=== PATIENT | male | born 1975 | race Caucasian/White ===

== ENCOUNTER 2019-05-17 08:06 | Emergency (ER) | payer SELFPAY ==
[~2019-05-17] VITALS: Ht 188 cm; Wt 72.6 kg
--- NOTE | 2019-05-17 08:43 | ED General ---
General Chief Complaint: General Problems/Pain Stated Complaint: N/V;ANXIETY;L ARM "BURNING" Nursing Triage Note: PT AMB TO RM 10 WOTH COMPLAINT OF ANXIETY, TROUBLE SLEEPIING, WEIGHT LOSS, VOMITING, AND L SHOUDLER BURNING. STATES HAS LOST 65 POUNDS SINCE ANKIT. Nursing Sepsis Screen: No Definite Risk Source of Information: Patient Exam Limitations: No Limitations History of Present Illness Date Seen by Provider: May 17, 2019 Time Seen by Provider: 08:29 Initial Comments The patient presents to the ER by private conveyance with chief complaint that he has had anxiety for the last several weeks to months. Concerns that he might be sick. He has concerns about a heart attack or stroke. He says for the past couple weeks he has had dull achy sensation in his shoulder left side that comes and goes for an hour to time. No chest pain shortness of breath cough fever chills. He has experienced significant weight loss of 65 pounds in the last 6 months. He does not know why. He is not having constipation diarrhea dysuria or discharge. Appetite is decreased as well as insomnia. He has not seen a doctor for this. He was trying to get in with Dr. Ramos's office but is on a wait list to be seen. He lives in [place] but since his girlfriend is here and [place] he would rather be seen here. He's not having any specific pain today. 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 He says the achiness in his shoulder is worse after working overhead with his arms extended. He is not experiencing any pain at the moment. He has no known medical or surgical history. His mom and dad are both positive for high blood pressure but no other significant medical history. No history of stroke, early onset cardiac disease, colon cancer, polyps etc. He's never had a colonoscopy. Past couple days he has had some nausea with dry heaving, retching; even again this morning. Allergies and Home Medications Allergies Coded Allergies: No Known Drug Allergies (Unverified , 05/17/19) Patient Home Medication List Home Medication List Reviewed: Yes Review of Systems Review of Systems Constitutional: No chills; dizziness (lightheadedness); No fever, No malaise EENTM: No ear discharge, No ear pain Respiratory: No cough, No phlegm Cardiovascular: No chest pain, No palpitations Gastrointestinal: No abdominal pain, No constipation, No diarrhea; nausea Genitourinary: No discharge, No dysuria Musculoskeletal: No back pain, No joint pain Skin: No pruritus, No rash Past Wlaimpg-[id number]-Xyrqbr Hx Patient Social History Alcohol Use: Occasionally Uses Recreational Drug Use: No Smoking Status: Current Everyday Smoker Type Used: Cigarettes Recent Foreign Travel: No Contact w/Someone Who Travel: No Recent Infectious Disease Expo: No Recent Hopitalizations: No Immunizations Up To Date Tetanus Booster (TDap): Unknown PED Vaccines UTD: Yes Seasonal Allergies Seasonal Allergies: No Past Medical History Surgeries: No Respiratory: No Cardiac: No Neurological: No Genitourinary: No Gastrointestinal: No Musculoskeletal: No Endocrine: No HEENT: No Cancer: No Psychosocial: No Anxiety Integumentary: No Physical Exam Vital Signs Vital Signs - First Documented 05/17/19 08:21 Temp 97.5 Pulse 83 Resp 16 B/P (MAP) 119/84 (96) Pulse Ox 99 O2 Delivery Room Air Capillary Refill : Less Than 3 Seconds Height, Weight, BMI Height: 6'2.00" Weight: 160lbs. oz. 72.916747yg; BMI Method:Stated General Appearance: No Apparent Distress, WD/WN Eyes: Bilateral Eye Normal Inspection, Bilateral Eye PERRL, Bilateral Eye EOMI HEENT: PERRL/EOMI, TMs Normal, Normal ENT Inspection, Pharynx Normal, Moist Mucous Membranes Neck: Full Range of Motion, Normal Inspection, Non Tender, Supple Respiratory: Lungs Clear, Normal Breath Sounds, No Accessory Muscle Use, No Respiratory Distress Cardiovascular: Regular Rate, Rhythm, No Edema, Normal Peripheral Pulses Gastrointestinal: Normal Bowel Sounds, Non Tender, Soft Extremity: Normal Capillary Refill, Normal Inspection, No Pedal Edema Neurologic/Psychiatric: Alert, Oriented x3, No Motor/Sensory Deficits Skin: Normal Color, Warm/Dry Progress/Results/Core Measures Suspected Sepsis Recent Fever Within 48 Hours: No Infection Criteria Present: None New/Unexplained Altered Menta: No Sepsis Screen: No Definite Risk SIRS Temperature:97.5 Pulse: 83 Respiratory Rate: 16 Laboratory Tests 05/17/19 08:52: White Blood Count 8.1 Blood Pressure 119 /84 Mean: 96 Laboratory Tests 05/17/19 08:52: Creatinine 0.85, Platelet Count 227, Total Bilirubin 0.3 Results/Orders Lab Results Laboratory Tests Test 05/17/19 08:52 05/17/19 09:35 Range/Units White Blood Count 8.1 4.3-11.0 10^3/uL Red Blood Count 4.87 4.35-5.85 10^6/uL Hemoglobin 14.4 13.3-17.7 G/DL Hematocrit 43 40-54 % Mean Corpuscular Volume 88 80-99 FL Mean Corpuscular Hemoglobin 30 25-34 PG Mean Corpuscular Hemoglobin Concent 34 32-36 G/DL Red Cell Distribution Width 13.2 10.0-14.5 % Platelet Count 227 130-400 10^3/uL Mean Platelet Volume 10.0 7.4-10.4 FL Neutrophils (%) (Auto) 63 42-75 % Lymphocytes (%) (Auto) 31 12-44 % Monocytes (%) (Auto) 5 0-12 % Eosinophils (%) (Auto) 1 0-10 % Basophils (%) (Auto) 0 0-10 % Neutrophils # (Auto) 5.1 1.8-7.8 X 10^3 Lymphocytes # (Auto) 2.5 1.0-4.0 X 10^3 Monocytes # (Auto) 0.4 0.0-1.0 X 10^3 Eosinophils # (Auto) 0.1 0.0-0.3 10^3/uL Basophils # (Auto) 0.0 0.0-0.1 10^3/uL Sodium Level 141 135-145 MMOL/L Potassium Level 4.1 3.6-5.0 MMOL/L Chloride Level 105 98-107 MMOL/L Carbon Dioxide Level 27 21-32 MMOL/L Anion Gap 9 5-14 MMOL/L Blood Urea Nitrogen 13 7-18 MG/DL Creatinine 0.85 0.60-1.30 MG/DL Estimat Glomerular Filtration Rate > 60 BUN/Creatinine Ratio 15 Glucose Level 98 70-105 MG/DL Calcium Level 9.4 8.5-10.1 MG/DL Corrected Calcium 9.2 8.5-10.1 MG/DL Total Bilirubin 0.3 0.1-1.0 MG/DL Aspartate Amino Transf (AST/SGOT) 14 5-34 U/L Alanine Aminotransferase (ALT/SGPT) 11 0-55 U/L Alkaline Phosphatase 81 40-136 U/L Troponin I < 0.028 <0.028 NG/ML B-Type Natriuretic Peptide 85.3 <100.0 PG/ML Total Protein 6.4 6.4-8.2 GM/DL Albumin 4.2 3.2-4.5 GM/DL Thyroid Stimulating Hormone (TSH) 1.29 0.35-4.94 UIU/ML Urine Color YELLOW Urine Clarity CLEAR Urine pH 8 5-9 Urine Specific [place] 1.015 L 1.016-1.022 Urine Protein NEGATIVE NEGATIVE Urine Glucose (UA) NEGATIVE NEGATIVE Urine Ketones NEGATIVE NEGATIVE Urine Nitrite NEGATIVE NEGATIVE Urine Bilirubin NEGATIVE NEGATIVE Urine Urobilinogen NORMAL NORMAL MG/DL Urine Leukocyte Esterase NEGATIVE NEGATIVE Urine RBC (Auto) 1+ H NEGATIVE Urine RBC 2-5 H /HPF Urine WBC NONE /HPF Urine Squamous Epithelial Cells RARE /HPF Urine Crystals NONE /LPF Urine Bacteria NEGATIVE /HPF Urine Casts NONE /LPF Urine Mucus NEGATIVE /LPF Urine Culture Indicated NO Urine Opiates Screen NEGATIVE NEGATIVE Urine Oxycodone Screen NEGATIVE NEGATIVE Urine Methadone Screen NEGATIVE NEGATIVE Urine Propoxyphene Screen NEGATIVE NEGATIVE Urine Barbiturates Screen NEGATIVE NEGATIVE Ur Tricyclic Antidepressants Screen NEGATIVE NEGATIVE Urine Phencyclidine Screen NEGATIVE NEGATIVE Urine Amphetamines Screen NEGATIVE NEGATIVE Urine Methamphetamines Screen NEGATIVE NEGATIVE Urine Benzodiazepines Screen NEGATIVE NEGATIVE Urine Cocaine Screen NEGATIVE NEGATIVE Urine Cannabinoids Screen POSITIVE H NEGATIVE My Orders Orders - MAGO MARSHALL Cbc With Automated Diff (05/17/19 08:38) Ekg Tracing (05/17/19 08:38) Comprehensive Metabolic Panel (05/17/19 08:38) Monitor-Rhythm Ecg Trace Only (05/17/19 08:38) Ed Iv/Invasive Line Start (05/17/19 08:38) Troponin I (05/17/19 08:38) Chest Pa/Lat (2 View) (05/17/19 08:38) Thyroid Stimulating Hormone (05/17/19 08:38) Ua Culture If Indicated (05/17/19 08:43) Drug Screen Stat (Urine) (05/17/19 08:43) Orthostatic Vital Signs (Adult (05/17/19 08:49) BNP (05/17/19 09:38) Vital Signs/I&O 05/17/19 05/17/19 08:21 08:58 Temp 97.5 Pulse 83 72 76 82 Resp 16 B/P (MAP) 119/84 (96) 111/76 (88) 117/83 (94) 108/82 (91) Pulse Ox 99 O2 Delivery Room Air Capillary Refill : Less Than 3 Seconds Blood Pressure Mean: 96 Progress Note #1: Time: 08:47 Progress Note The concerning, significant amount of weight loss in the past 6 months. Could be due to anxiety and insomnia. No neurologic findings on examination or clinical history. We will complete EKG, orthostatics, basic labs thinking about reasons for lightheadedness/near syncope. If we don't find anemia, dysrhythmia, or other findings on a 2 view chest x-ray we will set him up to follow up with primary care as well as cardiology for a near syncopal outpatient workup. Orthostatic vital signs unremarkable. Progress Note #2: Time: 10:21 Progress Note Microscopic hematuria of uncertain significance. If primary care finds that it persists for a couple weeks then may be reasonable to workup the tract. [place] syncope risk score 0 points. Low risk. 1.9% risk of 30-day serious adverse event. Plan to follow up outpatient with cardiology and primary care. ECG Initial ECG Impression Date: May 17, 2019 Initial ECG Impression Time: 08:46 Initial ECG Rate: 73 Initial ECG Rhythm: Normal Sinus Initial ECG Intervals: Normal Initial ECG Impression: Normal Initial ECG Comparisson: No Previous ECG Available Comment No clinically significant ST elevation or depression. Diagnostic Imaging Diagonstic Imaging: Xray Plain Films/CT/US/NM/MRI: chest (2v) Comments NAME: [facility] REC#: [id number] PT STATUS: REG ER : 1975 PHYSICIAN: MAGO MARSHALL MD ADMIT DATE: 05/17/19/ER Draft Date of Exam:05/17/19 CHEST PA/LAT (2 VIEW) INDICATION: Anxiety PA and lateral views of the chest are obtained. COMPARISON: No previous study is available for comparison at this time. FINDINGS: Heart size and pulmonary vasculature are within normal limits, and the lungs are clear, bilaterally. IMPRESSION: Unremarkable chest. Dictated on workstation # [id number] Dict: 05/17/1904 Trans: 05/17/19903 [facility] [id number] Interpreted by: AVELINA NUNEZ MD Electronically signed by: Reviewed: Reviewed by Me Departure Impression Primary Impression: Anxiety about health Additional Impressions: Weight loss of more than 10% body weight Near syncope Asymptomatic microscopic hematuria Insomnia Qualified Codes: G47.00 - Insomnia, unspecified Disposition: HOME, SELF-CARE Condition: Stable Departure-Patient Inst. Decision time for Depature: 10:23 Referrals: Jeffry WRIGHT MD Patient Instructions: Blood in the Urine (Hematuria) in Adults, Insomnia (DC), LOCAL PHYSICIAN LIST, Minimize Weight Loss, Near Fainting Add. Discharge Instructions: For your difficulty sleeping, and anxiety which may be connected you should talk to primary care doctor about counseling and medications that maybe beneficial. Your primary care doctor and you should also workup your suspicious weight loss over the past 6 months looking for a source. You can follow-up with the loss prevention investigator to discuss your lightheadedness and nearly passing out and they can help you set up some test that may reveal your risk factors and help you minimize these. If your microscopic blood in the urine persist then your primary care doctor can help you work this up outpatient as well. All discharge instructions reviewed with patient and/or family. Voiced understanding. Copy Copies To 1: Jeffry WRIGHT MD, TITUS J May 17, 2019 08:43
[2019-05-17 08:58] VITALS: BP_SYST 108; BP_SYST 111; BP_SYST 117; BP_DIAS 76; BP_DIAS 82; BP_DIAS 83
[2019-05-17 09:01] LABS: BASOPHILS % (AUTO) 0 % (0-10); EOSINOPHILS # (AUTO) 0.1 10^3/uL (0.0-0.3); EOSINOPHILS % (AUTO) 1 % (0-10); HEMATOCRIT 43 % (40-54); HEMOGLOBIN 14.4 G/DL (13.3-17.7); LYMPHOCYTES # (AUTO) 2.5 X 10^3 (1.0-4.0); LYMPHOCYTES % (AUTO) 31 % (12-44); MEAN CORPUSCULAR HEMOGLOBIN 30 PG (25-34); MEAN CORPUSCULAR HGB CONC 34 G/DL (32-36); MEAN CORPUSCULAR VOLUME 88 FL (80-99); MONOCYTES # (AUTO) 0.4 X 10^3 (0.0-1.0); MONOCYTES % (AUTO) 5 % (0-12); NEUTROPHILS # (AUTO) 5.1 X 10^3 (1.8-7.8); NEUTROPHILS % (AUTO) 63 % (42-75); PLATELET COUNT 227 10^3/uL (130-400); RED CELL DISTRIBUTION WIDTH 13.2 % (10.0-14.5); WHITE BLOOD COUNT 8.1 10^3/uL (4.3-11.0)
--- NOTE | 2019-05-17 09:05 | Diagnostic Imaging Report ---
INDICATION: Anxiety PA and lateral views of the chest are obtained. COMPARISON: No previous study is available for comparison at this time. FINDINGS: Heart size and pulmonary vasculature are within normal limits, and the lungs are clear, bilaterally. IMPRESSION: Unremarkable chest. Dictated by: Dictated on workstation # [id number]
[2019-05-17 09:22] LABS: ALANINE AMINOTRANSFERASE 11 U/L (0-55); ALBUMIN 4.2 GM/DL (3.2-4.5); ALKALINE PHOSPHATASE 81 U/L (40-136); BILIRUBIN,TOTAL 0.3 MG/DL (0.1-1.0); BUN/CREATININE RATIO 15; CALCIUM 9.4 MG/DL (8.5-10.1); CARBON DIOXIDE 27 MMOL/L (21-32); CHLORIDE 105 MMOL/L (98-107); CREATININE SERUM 0.85 MG/DL (0.60-1.30); GFR ESTIMATED > 60; GLUCOSE 98 MG/DL (70-105); POTASSIUM 4.1 MMOL/L (3.6-5.0); SODIUM 141 MMOL/L (135-145); TOTAL PROTEIN 6.4 GM/DL (6.4-8.2)
[2019-05-17 09:40] LABS: BILIRUBIN,URINE NEGATIVE (NEGATIVE); CLARITY,URINE CLEAR; COLOR,URINE YELLOW; GLUCOSE, URINE (UA) NEGATIVE (NEGATIVE); KETONES,URINE NEGATIVE (NEGATIVE); LEUKOCYTE ESTERASE ,URINE NEGATIVE (NEGATIVE); NITRITE,URINE NEGATIVE (NEGATIVE); PH,URINE 8 (5-9); PROTEIN,URINE NEGATIVE (NEGATIVE); UROBILINOGEN,URINE NORMAL (NORMAL)
[2019-05-17 09:58] LABS: AMPHETAMINE SCREEN, URINE NEGATIVE (NEGATIVE); BARBITURATE SCREEN URINE NEGATIVE (NEGATIVE); BENZODIAZEPINES SCREEN URINE NEGATIVE (NEGATIVE); CANNABINOID SCREEN, URINE POSITIVE (NEGATIVE); COCAINE SCREEN URINE NEGATIVE (NEGATIVE); METHADONE STAT NEGATIVE (NEGATIVE); METHAMPHETAMINE SCREEN URINE S NEGATIVE (NEGATIVE); OPIATE SCREEN URINE NEGATIVE (NEGATIVE); OXYCODONE STAT NEGATIVE (NEGATIVE); PROPOXYPHENE STAT NEGATIVE (NEGATIVE); TRICYCLIC ANTIDEPRESSANTS SCRE NEGATIVE (NEGATIVE)
[2019-05-17 10:05] LABS: BACTERIA,URINE NEGATIVE /HPF; SQUAMOUS EPITHELIAL CELL,UR RARE /HPF
[2019-05-17 10:40] VITALS: BP 118/79
== END 2019-05-17 10:40 | disposition home or self-care (01) ==
LOC: EDUNIT# 08:06 → ER 08:08
DX: F41.9 Anxiety disorder, unspecified (principal); R55 Syncope and collapse; G47.00 Insomnia, unspecified; R31.21 Asymptomatic microscopic hematuria; R63.4 Abnormal weight loss; F17.210 Nicotine dependence, cigarettes, uncomplicated
CPT/HCPCS: 36415; 71046; 80053; 80306; 81000; 83880; 84443; 84484; 85025; 93005